=== PATIENT | male | born 1950 | race Caucasian/White ===

== ENCOUNTER 2022-05-06 14:04 | Emergency (ER) | payer MEDICARE, OTHER ==
[~2022-05-06] VITALS: Ht 175.3 cm; Wt 118.8 kg
--- NOTE | 2022-05-06 14:10 | NUR ---
Pt ambulatory with his walker to room 1A, c/o chest pain since yesterday. Pt was brought to the ED by staff from his rehab facililty. Pt states he has been in a 12 step recovery program/facility since Apr 08. States he started having right sided chest pain radiating to his right shoulder blade area yesterday. States Hx of HTN, taking Amlodipine (dose unknown).
[2022-05-06] MEDS ORDERED: AMLO2.5T2 (14:17)
[2022-05-06] MEDS ORDERED: ACETAMINOPHEN ES 500 MG TABLET ONE (14:25)
[2022-05-06] MEDS ORDERED: IBUPROFEN 400 MG TABLET ONE (14:25)
[2022-05-06] MEDS ORDERED: ACETAMINOPHEN 325 MG TABLET PO ONE (14:30)
[2022-05-06] MEDS ORDERED: IBUPROFEN 400 MG TABLET PO ONE (14:30)
[2022-05-06 14:45] LABS: HEMATOCRIT 38.5 % (36.7-47.1); MEAN CORPUSCULAR HEMOGLOBIN 25.3 uug (23.8-33.4); MEAN CORPUSCULAR VOLUME 79.5 fL (73.0-96.2); PLATELET COUNT (AUTO) 294 K/uL (152-348)
[2022-05-06 14:53] LABS: CREATININE 1.3 mg/dL (0.6-1.3); POTASSIUM 4.2 mmol/L (3.5-5.1)
[2022-05-06 14:58] LABS: BILIRUBIN,TOTAL 0.3 mg/dL (0.2-1.0); TOTAL PROTEIN, SERUM 7.3 g/dL (6.4-8.2)
[2022-05-06] MEDS ORDERED: HYDROCODONE/APAP 5-325MG TABLET PO ONE (16:45)
[2022-05-06] MEDS ORDERED: HYDROCODONE/APAP 5-325MG TABLET ONE (16:48)
[2022-05-06 17:46] VITALS: BP 133/77
--- NOTE | 2022-05-06 17:47 | NUR ---
Patient discharged to home in stable condition. Written and verbal after care instructions given. Patient verbalizes understanding of instructions. Stressed follow up or return to ER for worsening s/s. Pt left ER using own walker.
== END 2022-05-06 17:48 | disposition home or self-care (01) ==
LOC: ER 14:04 → EDBD 14:04 → ER 17:48
DX: I10 Essential (primary) hypertension (principal); Z79.899 Other long term (current) drug therapy
CPT/HCPCS: 36415; 71045; 84484; 85025; 93005; A4663; A9150

== ENCOUNTER 2022-05-09 14:19 | Inpatient (IN) | payer MEDICARE, OTHER ==
[~2022-05-09] VITALS: Ht 175.3 cm; Wt 118.8 kg
[~2022-05-09 14:19] MED LIST: AMLO2.5T2
[2022-05-09 15:08] LABS: HEMATOCRIT 44.2 % (36.7-47.1); MEAN CORPUSCULAR HEMOGLOBIN 25.7 uug (23.8-33.4); MEAN CORPUSCULAR VOLUME 79.4 fL (73.0-96.2); PLATELET COUNT (AUTO) 330 K/uL (152-348)
[2022-05-09 15:10] LABS: CREATININE 1.1 mg/dL (0.6-1.3); POTASSIUM 4.3 mmol/L (3.5-5.1)
[2022-05-09 15:16] LABS: BILIRUBIN,DIRECT 0.1 mg/dL (0.0-0.2); BILIRUBIN,TOTAL 0.4 mg/dL (0.2-1.0); TOTAL PROTEIN, SERUM 7.7 g/dL (6.4-8.2)
[2022-05-09] MEDS ORDERED: ONDANSETRON 4 MG/2 ML VIAL IV ONE (15:30)
[2022-05-09] MEDS ORDERED: IV NORMAL SALINE 1000 ML BAG IV ONE (15:30)
[2022-05-09] MEDS ORDERED: ONDANSETRON 4 MG/2 ML VIAL ONE (15:34)
[2022-05-09 16:02] LABS: *BILIRUBIN,URIN 1+ (NEGATIVE); *CLARITY,URINE CLEAR (CLEAR); *COLOR,URINE YELLOW (YELLOW); *KETONES,URINE NEGATIVE (NEGATIVE); *UROBILINOGEN,URINE 0.2 E.U./dl (NORMAL); LEUKOCYTE ESTERASE ,URINE NEGATIVE (NEGATIVE); NITRITE, URINE NEGATIVE (NEGATIVE); UGLUCOSE NEGATIVE (NEGATIVE)
[2022-05-09 16:10] LABS: *BLOOD, URINE TRACE (NEGATIVE)
[2022-05-09] MEDS: LIDOCAINE VISCUS 2% 15 ML UDC MM ONE ×2 (16:46→16:49)
[2022-05-09] MEDS ORDERED: LIDOCAINE 2% (GLYDO= UROJET) 10 ML JELLY MM ONE ×2 (16:48→17:00)
[2022-05-09 19:51] LABS: BACTERIA,URINE FEW /HPF (NONE SEEN); SQUAMOUS EPITHELIAL CELL,UR FEW /HPF (NONE SEEN); WBC,URINE NONE SEEN /HPF (0-3)
[2022-05-09] MEDS: MORPHINE SULFATE 2 MG/1 ML DISP.SYRIN IV PRN (19:59)
[2022-05-09] MEDS ORDERED: NITROGLYCERIN 0.4 MG/TAB BOTTLE SL PRN (20:00)
[2022-05-09] MEDS ORDERED: ACETAMINOPHEN 650 MG SUPP.RECT RC PRN (21:00)
[2022-05-09 21:14] VITALS: BP 145/66
[2022-05-09] MEDS: IV D5 1/2 NS 1000 ML 1,000 ML IV PRN (21:25)
[2022-05-09] MEDS: ENOXAPARIN SODIUM 40 MG/0.4 ML DISP.SYRIN SQ SCH (21:39)
[2022-05-09] MEDS ORDERED: PIPERACILLIN SODIUM/TAZOBACTAM 3.375 G in IV DEXTROSE 5% 50 ML IV SCH (22:00)
[2022-05-09] MEDS ORDERED: PIPERACILLIN/TAZOBACTAM/D5W 50 ML IV ONE (22:07)
[2022-05-09] MEDS: PIPERACILLIN SODIUM/TAZOBACTAM 3.375 G in IV DEXTROSE 5% 50 ML IV SCH (22:16)
[2022-05-09] MEDS: LORAZEPAM 2 MG/1 ML VIAL IV PRN (22:17)
[2022-05-10] MEDS: MORPHINE SULFATE 2 MG/1 ML DISP.SYRIN IV PRN ×2 (02:14→20:24)
[2022-05-10 04:48] VITALS: BP 149/66
[2022-05-10] MEDS ORDERED: PIPERACILLIN/TAZOBACTAM/D5W 50 ML IV ONE (05:24)
[2022-05-10] MEDS: PIPERACILLIN SODIUM/TAZOBACTAM 3.375 G in IV DEXTROSE 5% 50 ML IV SCH (05:32)
[2022-05-10] MEDS ORDERED: DIATR MEGLU/DIATRIZOATE SODIUM 30 ML BOTTLE ONE (07:58)
[2022-05-10 08:08] LABS: HEMATOCRIT 40.4 % (36.7-47.1); MEAN CORPUSCULAR HEMOGLOBIN 25.8 uug (23.8-33.4); MEAN CORPUSCULAR VOLUME 79.4 fL (73.0-96.2); PLATELET COUNT (AUTO) 293 K/uL (152-348)
[2022-05-10] MEDS: PANTOPRAZOLE SODIUM 40 MG VIAL IV SCH (08:09)
[2022-05-10 08:21] LABS: BILIRUBIN,TOTAL 0.4 mg/dL (0.2-1.0); CREATININE 1.1 mg/dL (0.6-1.3); MAGNESIUM 2.3 mg/dL (1.8-2.4); PHOSPHOROUS 2.3 mg/dL (2.5-4.9); POTASSIUM 3.5 mmol/L (3.5-5.1); TOTAL PROTEIN, SERUM 6.5 g/dL (6.4-8.2)
[2022-05-10 08:58] LABS: THYROID STIMULATING HORMONE 1.555 mIU/mL (0.358-3.740)
[2022-05-10 11:31] VITALS: BP 155/66
[2022-05-10] MEDS: PIPERACILLIN SODIUM/TAZOBACTAM 3.375 G in IV DEXTROSE 5% 100 ML IV SCH ×2 (13:33→22:00)
[2022-05-10 15:31] VITALS: BP 119/59
[2022-05-10] MEDS ORDERED: POTASSIUM PHOSPHATE MM 15 MMOL in IV NORMAL SALINE 250 ML IV ONE (17:00)
[2022-05-10 20:00] VITALS: BP 120/68
[2022-05-10] MEDS: ENOXAPARIN SODIUM 40 MG/0.4 ML DISP.SYRIN SQ SCH (20:21)
[2022-05-11] VITALS: BP 122/52
[2022-05-11 04:00] VITALS: BP_SYST 114; BP_SYST 124; BP_DIAS 60; BP_DIAS 66
[2022-05-11] MEDS: PIPERACILLIN SODIUM/TAZOBACTAM 3.375 G in IV DEXTROSE 5% 100 ML IV SCH ×3 (06:05→22:22)
[2022-05-11 07:45] LABS: HEMATOCRIT 42.3 % (36.7-47.1); MEAN CORPUSCULAR HEMOGLOBIN 25.6 uug (23.8-33.4); MEAN CORPUSCULAR VOLUME 79.8 fL (73.0-96.2); PLATELET COUNT (AUTO) 301 K/uL (152-348)
[2022-05-11 08:00] LABS: MAGNESIUM 2.4 mg/dL (1.8-2.4); PHOSPHOROUS 3.1 mg/dL (2.5-4.9); POTASSIUM 3.3 mmol/L (3.5-5.1)
[2022-05-11] MEDS: PANTOPRAZOLE SODIUM 40 MG VIAL IV SCH (08:26)
[2022-05-11] MEDS: POTASSIUM CHLORIDE 50 ML IV SCH ×2 (10:59→11:37)
[2022-05-11 11:11] VITALS: BP 156/67
[2022-05-11] MEDS: ONDANSETRON 4 MG/2 ML VIAL IV PRN (16:26)
[2022-05-11] MEDS: ENOXAPARIN SODIUM 40 MG/0.4 ML DISP.SYRIN SQ SCH (21:58)
[2022-05-11] MEDS: LORAZEPAM 2 MG/1 ML VIAL IV PRN (22:22)
[2022-05-12] MEDS: TRAZODONE 50 MG TABLET PO PRN (01:59)
[2022-05-12] MEDS ORDERED: PRAZOSIN HCL 1 MG CAPSULE ONE (02:18)
[2022-05-12] MEDS: PRAZOSIN HCL 1 MG CAPSULE PO SCH ×2 (05:17→21:02)
[2022-05-12] MEDS: ONDANSETRON 4 MG/2 ML VIAL IV PRN ×2 (05:32→09:05)
[2022-05-12] MEDS: PIPERACILLIN SODIUM/TAZOBACTAM 3.375 G in IV DEXTROSE 5% 100 ML IV SCH ×3 (05:40→21:16)
[2022-05-12 07:46] LABS: HEMATOCRIT 42.9 % (36.7-47.1); MEAN CORPUSCULAR HEMOGLOBIN 25.6 uug (23.8-33.4); MEAN CORPUSCULAR VOLUME 79.3 fL (73.0-96.2); PLATELET COUNT (AUTO) 313 K/uL (152-348)
[2022-05-12 08:28] VITALS: BP 135/66
[2022-05-12 08:28] LABS: BILIRUBIN,TOTAL 0.5 mg/dL (0.2-1.0); MAGNESIUM 2.3 mg/dL (1.8-2.4); PHOSPHOROUS 3.6 mg/dL (2.5-4.9); POTASSIUM 3.3 mmol/L (3.5-5.1); TOTAL PROTEIN, SERUM 7.2 g/dL (6.4-8.2)
[2022-05-12] MEDS: PANTOPRAZOLE SODIUM 40 MG VIAL IV SCH (08:56)
[2022-05-12] MEDS: MORPHINE SULFATE 2 MG/1 ML DISP.SYRIN IV PRN (09:05)
[2022-05-12] MEDS ORDERED: POTASSIUM CHLORIDE 50 ML IV SCH (11:15)
[2022-05-12 12:00] VITALS: BP 149/71
[2022-05-12] MEDS ORDERED: POTASSIUM CHLORIDE 20 MEQ TAB.PRT.SR PO ONE (12:45)
[2022-05-12 16:00] VITALS: BP 154/67
[2022-05-12] MEDS ORDERED: GEMF600T90 PO (16:44)
[2022-05-12] MEDS ORDERED: METH-807 PO (16:44)
[2022-05-12] MEDS ORDERED: ONDA4TAB11 PO (16:44)
[2022-05-12] MEDS ORDERED: DICL100G31 TP (16:44)
[2022-05-12] MEDS ORDERED: GABA300C PO (16:44)
[2022-05-12] MEDS ORDERED: TOPI50TA24 PO (16:44)
[2022-05-12] MEDS ORDERED: TIOT4MIS2 PO (16:44)
[2022-05-12] MEDS ORDERED: PRAZ5CAP2 PO (16:44)
[2022-05-12] MEDS ORDERED: TAMS-3 PO (16:44)
[2022-05-12] MEDS ORDERED: TRAZ-257 PO (16:44)
[2022-05-12] MEDS ORDERED: FURO20TA4 PO (16:44)
[2022-05-12] MEDS ORDERED: HYDR50TA62 PO ×2 (16:44)
[2022-05-12] MEDS ORDERED: TERB250T52 PO (16:44)
[2022-05-12] MEDS ORDERED: CHOL200026 PO (16:44)
[2022-05-12] MEDS ORDERED: FLUT1BLS12 PO (16:44)
[2022-05-12] MEDS ORDERED: POTA10TA10 PO (16:44)
[2022-05-12] MEDS ORDERED: AMLO10TA59 PO (16:44)
[2022-05-12] MEDS ORDERED: VENL225T PO (16:44)
[2022-05-12] MEDS ORDERED: MULT-24 PO (16:44)
[2022-05-12] MEDS ORDERED: DOCU-141 PO (16:44)
[2022-05-12] MEDS ORDERED: PRIM50TA27 PO (16:44)
[2022-05-12] MEDS ORDERED: HYDR28OI2 TP (16:50)
[2022-05-12] MEDS ORDERED: [UNRECOGNIZED DRUG - CODE] TP (16:50)
[2022-05-12] MEDS ORDERED: TRIA15CR2 TP (16:50)
[2022-05-12] MEDS ORDERED: LIDO1ADH44 TP (16:50)
[2022-05-12] MEDS ORDERED: ACET-2605 PO (16:51)
[2022-05-12] MEDS ORDERED: hydrOXYzine HCL 25 MG TABLET PO PRN (18:15)
[2022-05-12 20:18] VITALS: BP 137/61
[2022-05-12] MEDS: PRIMIDONE 50 MG TABLET PO SCH (20:51)
[2022-05-12] MEDS: METHOCARBAMOL 750 MG TABLET PO SCH (20:53)
[2022-05-12] MEDS ORDERED: TOPIRAMATE 25 MG TABLET PO SCH (21:00)
[2022-05-12] MEDS ORDERED: hydrOXYzine HCL 25 MG TABLET PO SCH (21:00)
[2022-05-12] MEDS ORDERED: TRAZODONE 100 MG TABLET PO SCH (21:00)
[2022-05-12] MEDS ORDERED: PRAZOSIN HCL 1 MG CAPSULE PO SCH (21:00)
[2022-05-12] MEDS ORDERED: TAMSULOSIN HCL 0.4 MG CAP.SR.24H PO SCH (21:00)
[2022-05-12] MEDS: GEMFIBROZIL 600 MG TABLET PO SCH (21:05)
[2022-05-12] MEDS: IV D5 1/2 NS 1000 ML 1,000 ML IV PRN (21:07)
[2022-05-12] MEDS: ENOXAPARIN SODIUM 40 MG/0.4 ML DISP.SYRIN SQ SCH (21:12)
[2022-05-12] MEDS: GABAPENTIN 300 MG CAPSULE PO SCH (21:14)
[2022-05-13] MEDS: TRAZODONE 50 MG TABLET PO PRN (00:11)
[2022-05-13 00:30] VITALS: BP 148/69
[2022-05-13 04:41] VITALS: BP 118/60
[2022-05-13] MEDS: PIPERACILLIN SODIUM/TAZOBACTAM 3.375 G in IV DEXTROSE 5% 100 ML IV SCH ×2 (05:07→13:25)
[2022-05-13] MEDS ORDERED: FLUTICASONE/VILANTEROL 1 EACH BLST.W.DEV IH SCH (09:00)
[2022-05-13] MEDS ORDERED: MULTIVITAMINS,THERAPEUTIC TABLET PO SCH (09:00)
[2022-05-13] MEDS ORDERED: AMLODIPINE 10 MG TABLET PO SCH (09:00)
[2022-05-13] MEDS ORDERED: VENLAFAXINE XR 75 MG TAB.ER.24H PO SCH (09:00)
[2022-05-13] MEDS: GABAPENTIN 300 MG CAPSULE PO SCH ×2 (09:37→13:24)
[2022-05-13] MEDS: PANTOPRAZOLE SODIUM 40 MG VIAL IV SCH (09:37)
[2022-05-13 09:39] VITALS: BP 114/53
[2022-05-13] MEDS: METHOCARBAMOL 750 MG TABLET PO SCH ×2 (09:42→13:24)
[2022-05-13] MEDS: GEMFIBROZIL 600 MG TABLET PO SCH (09:43)
[2022-05-13] MEDS: PRIMIDONE 50 MG TABLET PO SCH (09:43)
== END 2022-05-13 15:50 | disposition home or self-care (01) | DRG 389 ==
LOC: ER 14:21 → MEDSURG3 18:22 → MED 05-12 07:30
PROVIDERS: ADMIT Internal Medicine
DX: K56.609 Unspecified intestinal obstruction, unspecified as to partial versus complete obstruction (principal); A04.9 Bacterial intestinal infection, unspecified; D68.59 Other primary thrombophilia; R33.8 Other retention of urine; Z74.09 Other reduced mobility; E66.9 Obesity, unspecified; E78.5 Hyperlipidemia, unspecified; G89.29 Other chronic pain; J44.9 Chronic obstructive pulmonary disease, unspecified; Z20.822 Contact with and (suspected) exposure to COVID-19; N28.1 Cyst of kidney, acquired; Z87.442 Personal history of urinary calculi; Z87.891 Personal history of nicotine dependence; I10 Essential (primary) hypertension; G47.33 Obstructive sleep apnea (adult) (pediatric); Z68.38 Body mass index [BMI] 38.0-38.9, adult; M19.90 Unspecified osteoarthritis, unspecified site; N40.1 Benign prostatic hyperplasia with lower urinary tract symptoms; Z85.46 Personal history of malignant neoplasm of prostate
CPT/HCPCS: 36415; 71045; 74018; 74250; 82378; 83690; 83735; 84100; 84153; 84443; 84484; 85025; A4663; C9113; G0378; J1650; J2060; J2270; J2405; J2543; J3480; J3490; J7040; Q9963